=== PATIENT | female | born 1990 | race Caucasian/White ===

== ENCOUNTER 2021-04-23 07:43 | Day surgery (SDC) | payer OTHER ==
[2021-04-23] MEDS ORDERED: hydrALAZINE 20 MG/ML VIAL SLOW IVP PRN (10:52)
[2021-04-23] MEDS ORDERED: Lactated Ringer's 1,000 ML IV SCH (11:00)
== END 2021-04-23 11:00 | disposition home or self-care (01) ==
LOC: CSHLD/OP 07:43
PROVIDERS: ATTEND Family Medicine
DX: O47.03 False labor before 37 completed weeks of gestation, third trimester (principal); Z3A.32 32 weeks gestation of pregnancy; Z79.2 Long term (current) use of antibiotics
CPT/HCPCS: 96360; 99283

== ENCOUNTER 2021-06-03 10:17 | Inpatient (IN) | payer OTHER ==
[~2021-06-03 10:17] MED LIST: Bupivacaine 0.25% HCL 30 ML VIAL ONE
[2021-06-03 10:49] VITALS: BMI 23.0
[2021-06-03] MEDS ORDERED: Lidocaine 1% (PF) 30 ML VIAL SC PRN (12:01)
[2021-06-03] MEDS ORDERED: Ibuprofen 800 MG TAB PO PRN (12:01)
[2021-06-03] MEDS ORDERED: Promethazine HCl 25 MG/ML VIAL IM PRN ×3 (12:01→22:23)
[2021-06-03] MEDS ORDERED: Diphenoxylate HCl/Atropine Tablet PO PRN (12:01)
[2021-06-03] MEDS ORDERED: Acetaminophen 500 MG TAB PO PRN (12:01)
[2021-06-03] MEDS ORDERED: Methylergonovine 0.2 MG/ML VIAL IM PRN (12:01)
[2021-06-03] MEDS ORDERED: Misoprostol 200 MCG TAB PR PRN (12:01)
[2021-06-03] MEDS ORDERED: Ondansetron PF 4 MG/2 ML Vial IVP PRN ×3 (12:01→22:23)
[2021-06-03] MEDS ORDERED: Butorphanol Tartrate 1 MG/ML VIAL SLOW IVP PRN (12:01)
[2021-06-03] MEDS ORDERED: Carboprost 250 MCG/ML AMP IM PRN (12:01)
[2021-06-03] MEDS ORDERED: HYDROcodone/Acetaminophen 5/325 mg Tablet PO PRN ×3 (12:01→22:23)
[2021-06-03] MEDS ORDERED: hydrALAZINE 20 MG/ML VIAL SLOW IVP PRN ×2 (12:01→22:23)
[2021-06-03] MEDS ORDERED: Fentanyl 2 mcg/Bup 0.1% Cadd 100 ML ONE (12:12)
[2021-06-03] MEDS ORDERED: Lactated Ringer's 1,000 ML IV SCH (12:15)
[2021-06-03] MEDS ORDERED: NS w/ Oxytocin 30 units 500 ML IV SCH ×2 (12:15→22:23)
[2021-06-03] MEDS ORDERED: NS w/ Oxytocin 30 units 500 ML IVPB SCH (12:15)
[2021-06-03 12:27] LABS: Hemoglobin 10.4 g/dL (12.0-15.5); Mean Corpuscular HGB CONC 32.6 g/dL (32.0-36.0); Mean Corpuscular Hemoglobin 27.1 pg (27.0-33.0); Mean Corpuscular Volume 83.1 fl (81.6-98.3); Mean Platelet Volume 10.4 fl (7.4-10.4); Platelet Count 370 10x3/uL (150-450); RBC Distribution Width 13.7 % (11.5-14.5); Red Blood Cell (RBC) Count 3.84 10x6/uL (3.90-5.03); White Blood Cell (WBC) Count 15.7 10x3/uL (3.5-10.5)
[2021-06-03 13:01] LABS: Syphilis Antibody Nonreactive (Nonreactive); Syphilis Antibody Index 0.12 S/CO (<1.00 Non-Reactive)
[2021-06-03 13:02] LABS: Hep B Surf Ag Non-Reactive S/CO (NonReactive)
[2021-06-03] MEDS ORDERED: Hydrocerin (Eucerin) Cream 120 gm Jar TOP PRN (13:24)
[2021-06-03] MEDS ORDERED: Acetaminophen 325 MG TAB PO PRN (13:24)
[2021-06-03] MEDS ORDERED: Lactated Ringer's 500 ML IV PRN (13:24)
[2021-06-03] MEDS ORDERED: Naloxone HCl 0.4 mg/ml Vial IVP PRN ×2 (13:24)
[2021-06-03] MEDS ORDERED: ePHEDrine Sulfate 50 MG/10 ML VIAL SLOW IVP PRN (13:24)
[2021-06-03] MEDS ORDERED: diphenhydrAMINE 50 MG/ML VIAL IVP PRN (13:24)
[2021-06-03] MEDS ORDERED: Communication Order-Pharmacy FS SCH (13:30)
[2021-06-03] MEDS ORDERED: Fentanyl 2 mcg/Bupivacaine 0.1% Cassette 100 ML EPIDURAL SCH (13:30)
[2021-06-03 13:31] LABS: SARS-CoV-2 NAA Rapid Test Not Detected (NotDetected)
[2021-06-03] MEDS: NS w/ Oxytocin 30 units 500 ML IV SCH ×2 (17:40→20:47)
[2021-06-03] MEDS: Tranexamic Acid 1,000 MG in Sodium Chloride 0.9% 100 ML IVPB SCH ×2 (17:50→18:50)
[2021-06-03] MEDS ORDERED: Tranexamic Acid 1,000 MG/10 ML VIAL ONE (17:50)
[2021-06-03] MEDS: CEFAZOLIN 2 GM in Premix Bag 1 BAG IVPB SCH (17:50)
[2021-06-03] MEDS ORDERED: Azithromycin 500 MG in Sodium Chloride 0.9% 250 ML 250 ML IVPB SCH (18:15)
[2021-06-03] MEDS ORDERED: Boostrix 0.5 ML (Tdap) VIAL IM ONE (22:23)
[2021-06-03] MEDS ORDERED: Milk Of Magnesia 30 ML UDCUP PO PRN (22:23)
[2021-06-03] MEDS ORDERED: Bisacodyl 10 MG SUPP PR PRN (22:23)
[2021-06-03] MEDS ORDERED: Lanolin Ointment 7 GM TUBE TOP PRN (22:23)
[2021-06-03] MEDS ORDERED: diphenhydrAMINE 25 MG CAP PO PRN (22:23)
[2021-06-03] MEDS ORDERED: Benzocaine-Menthol 82.5 ML CAN TOP PRN (22:23)
[2021-06-03] MEDS ORDERED: Docusate Calcium (SURFAK) 240 MG CAP PO SCH (22:30)
[2021-06-03] MEDS ORDERED: Ibuprofen 800 MG TAB PO SCH (22:30)
[2021-06-04] MEDS: CEFAZOLIN 2 GM in Premix Bag 1 BAG IVPB SCH ×2 (02:15→09:56)
[2021-06-04 05:23] LABS: Hemoglobin 8.5 g/dL (12.0-15.5); Mean Corpuscular HGB CONC 31.6 g/dL (32.0-36.0); Mean Corpuscular Hemoglobin 26.1 pg (27.0-33.0); Mean Corpuscular Volume 82.5 fl (81.6-98.3); Mean Platelet Volume 10.1 fl (7.4-10.4); Platelet Count 299 10x3/uL (150-450); RBC Distribution Width 13.7 % (11.5-14.5); Red Blood Cell (RBC) Count 3.26 10x6/uL (3.90-5.03)
[2021-06-04] MEDS: Ibuprofen 800 MG TAB PO SCH ×2 (06:13→13:33)
[2021-06-04] MEDS: Ferrous Sulfate 325 MG TAB PO SCH ×2 (08:57→16:10)
[2021-06-04] MEDS ORDERED: Prenatal Vitamin 1 TAB PO SCH (09:00)
[2021-06-04] MEDS ORDERED: Docusate Calcium (SURFAK) 240 MG CAP PO SCH (09:00)
[2021-06-04 17:30] VITALS: BP 118/66; TEMP 98.6
== END 2021-06-04 19:50 | disposition home or self-care (01) | DRG 807 ==
LOC: CSHLD/OP 10:17 → CSHLD 13:02 → CSHPP 22:31
PROVIDERS: ADMIT Family Medicine; ATTEND Family Medicine
PROC: 10E0XZZ Delivery of Products of Conception, External Approach (ICD-10-PCS; principal; 2021-06-03)
DX: O73.0 Retained placenta without hemorrhage (principal); Z37.0 Single live birth; Z20.822 Contact with and (suspected) exposure to COVID-19; Z3A.39 39 weeks gestation of pregnancy
CPT/HCPCS: 36415; 51702; 85027; 86780; 86850; 86900; 86901; 87340; 99285; J0456; J0690; J2590; J3490; J7050; J7120; U0002

== ENCOUNTER 2022-09-27 18:21 | Emergency (ER) | payer OTHER ==
[2022-09-27] MEDS ORDERED: HYDROcodone/Acetaminophen 5/325 mg Tablet ONE (18:52)
[2022-09-27] MEDS ORDERED: Ketorolac Tromethamine 30 MG/ML VIAL ONE (18:52)
== END 2022-09-27 19:24 | disposition home or self-care (01) ==
LOC: CSHERS 18:21
DX: K02.9 Dental caries, unspecified (principal); F17.210 Nicotine dependence, cigarettes, uncomplicated
CPT/HCPCS: 96372; 99282; J1885